=== PATIENT | male | born 1940 | race Caucasian/White ===

== ENCOUNTER 2021-12-29 10:50 | Day surgery (SDC) | payer MEDICARE ==
[~2021-12-29] VITALS: Ht 177.8 cm; Wt 88.2 kg
[2021-12-29] VITALS (11 sets, daily range): BP systolic 121–166; BP diastolic 56–85; PULSE 58–81; TEMP 97.1–98.8
[2021-12-29] MEDS ORDERED: REQUIP0.25 MG PO (12:11)
[2021-12-29] MEDS ORDERED: FLOMAX 0.40.4 MG/CAP PO (12:12)
[2021-12-29] MEDS ORDERED: DITROPAN XL15 MG PO (12:12)
[2021-12-29] MEDS ORDERED: PROSCAR 5MG5 MG PO (12:13)
[2021-12-29] MEDS ORDERED: SINEMET 25/101 UDTAB PO ×2 (12:15→12:16)
[2021-12-29] MEDS ORDERED: PYRIDIUM 100MG100 MG PO (13:36)
--- NOTE | 2021-12-29 15:45 | NUR ---
PT'S FLOMAX HAD ENTERED INTO MED REC BEING TAKEN TID @ HOME. PT STATES THAT HE ONLY TAKES IT ONCE A DAY.
--- NOTE | 2021-12-29 17:44 | NUR ---
PT ARRIVED TO ROOM @ 1505 FROM PACU. PT HAS SLEPT SINCE ARRIVAL BUT IS EASILY AROUSABLE. PT'S SON WAS HERE BUT HAS SINCE LEFT. PT PERSONAL BELONGINGS ET WALKER ARE IN ROOM. PT HAS PARKINSON'S WITH OCCASIONAL TREMORS. TREMORS HAVE BEEN SEEN FREQUENTLY. PT IS ORIENTED TO PLACE, DATE ET SITUATION. SCDS ARE BILATERAL LEGS. CBI RUNNING @ A MODERATE RATE, DRAINAGE IN GONSALEZ BAG IS PINK ET CLEAR. POST OP IVF INFUSING INTO PT'S LEFT HAND. PT IS OFFERED FLUIDS FREQUENTLY BUT STATES THAT HE WOULD NOT LIKE TO HAVE ANY @ THE MOMENT, CONTINUES TO BE DROWSY. RESPIRATIONS UNLABORED. CALL LIGHT WITHIN REACH. BED ALARM IS ON.
--- NOTE | 2021-12-29 18:15 | NUR ---
PT IS MORE AWAKE @ THIS TIME. OPENS EYES BUT DOES NOT TALK MUCH. PT IS ENCOURAGED TO DRINK ET TAKES A SIP OF WATER. PT DENIES NEEDS WHEN ASKED. CBI RUNNING @ A MODERATE RATE, DRAINAGE IS LIGHT PINK ET CLEAR. IVF INFUSING. CALL LIGHT WITHIN REACH.
--- NOTE | 2021-12-29 20:55 | NUR ---
Patient assessed around 1954. Alert and oriented. Denies pain and discomfort. Peripheral IV to left hand. Has IV fluids running at this time, as he did not eat and drink much for supper. Denies SOB and dyspnea. LS CTA in upper lobes, diminished in lower. HRR. BSAx4. Abdomen soft and non-tender. No edema. Patient has CBI running at this time. Moderate rate, with pink, clear urine. Voices no questions, needs, or concerns at this time. In bed with call light within reach. Bed alarm on.
[2021-12-30 04:20] VITALS: BP 140/85; PULSE 74; TEMP 98.2
--- NOTE | 2021-12-30 05:32 | NUR ---
CBI continues to run. Output pink/clear. Had 3 small clots during the night, no irrigation needed. Patient had received B&O suppository once during the night, which he reports helped some. Voices no questions, needs, or concerns at this time. In bed with call light within reach.
[2021-12-30 06:40] VITALS: BP 153/70; PULSE 74; TEMP 98.3
--- NOTE | 2021-12-30 06:50 | NUR ---
Shift assessment completed. IV intact in left hand with no signs of redness. Running 1/2 NS at 75 mL/hr. Indwelling cardoza catheter intact with CBI running at a slow rate. Light pink urine noted. SCD's intact. Call light in reach.
--- NOTE | 2021-12-30 08:21 | NUR ---
MAIL RIDER BROOKLIN REPORTS THAT PT HAD BEEN SETTING OFF HIS BED ALARM ET LEAVING BED BY SELF, WAS CONFUSED ET ATTEMPTED TO PULL ON CATHETER, WAS ABLE TO RE-ORIENT ET SETTLED BACK INTO BED. WHEN THIS NURSE ENTERS ROOM, PT IS IN BED LYING STILL WITH EYES OPEN. PT IS A&O X3, CAN RECALL WHAT DR. YU TOLD HIM THIS MORNING. PT IS SLOW TO SPEAK ET RESPOND @ BASELINE. PT DENIES PAIN OR NEEDS. PT ATE 100% OF HIS BREAKFAST ET IS TAKING FLUIDS WELL. IVF DCED PER ORDERS. CBI RUNNING SLOW, DRAINAGE IS PINK ET CLEAR, 1 SMALL RED CLOT SEEN IN TUBING. STUDENT BERNADETTE IS ASSISTING IN CARE. CALL LIGHT WITHIN REACH. BED ALARM ON.
--- NOTE | 2021-12-30 09:05 | NUR ---
PHONE ORDER RECEIVED FROM DR. YU TO PRIME & PULL GONSALEZ CATHETER.
--- NOTE | 2021-12-30 09:26 | NUR ---
Social Work student met with patient to discuss discharge planning. Patient states he lives in [place] at home. Patient sees Dr. Ghassan Johnson for primay care, and he utilizes the [facility] in [place] to receive his medications. The patient states he has no problems affording the medications. Patient states he uses a walker, does not have any oxygen needs, and is independent with his ADL's. Patient states that he has a copy of his DPOA-HC at home, but the hospital does not currently have a copy. Patient states that he is comfortable with going home when he is ready to discharge after his surgery. Discharge plan: Home
--- NOTE | 2021-12-30 09:35 | NUR ---
Prime and pull performed. Approx 300 mL NS infused into bladder. 30 mL sterile water removed from balloon. 22FR cardoza catheter removed with tip intact. Pt tolerated well. Six bottle routine initiated and pt was educated on the process. Pt voiced understanding. 0950 First void collected was 120 mL of munoz red colored urine. Pt complained of 5/10 burning pain during urination.
[2021-12-30 10:50] VITALS: BP 144/64; PULSE 78; TEMP 98.2
--- NOTE | 2021-12-30 15:00 | NUR ---
DR. YU CALLED ET UPDATED ON PT STATUS. PT'S URINE CONTINUES TO BE BRIGHT RED ET HAZY BUT NO CLOTS ARE SEEN. PT DOES REPORT SOME BURNING WITH URINATION. NO NEW ORDERS @ THIS TIME BUT TO CONTINUE TO MONITOR URINE OUTPUT FOR NOW, TO ENCOURAGE FLUIDS, ET TO UPDATE THE ON-CALL DOCTOR BEFORE DISCHARGING PT. PT'S DAUGHTER IN LAW IS HERE ET WILL BE PT'S RIDE HOME. PT IS ORIENTED BUT BECOMES FORGETFUL ET WILL BEGIN TO STAND ON OWN. PT HAS CHRONIC ET GAIT IS NOT ALWAYS STEADY. BED ALARM USED FOR SAFETY.
[2021-12-30 16:00] VITALS: BP 172/74; PULSE 78; TEMP 98
--- NOTE | 2021-12-30 17:30 | NUR ---
PT HAS BEEN URINATING FREQUENTLY BUT AVERAGING 150 ML/VOID. PT BLADDER SCANNED BY PCT CHECO. GREATEST AMOUNT SCANNED WAS [address] GUTIERREZ CALLED ET UPDATED ON PT STATUS. NEW ORDER RECEIVED FOR SL LEVSIN. PT'S URINE HAS BECOME CLEAR ET IS A PINK/PEACH COLOR. NO CLOTS HAVE BEEN SEEN. LEVSIN SL ADMINISTERED TO PT. DAUGHTER IN LAW IS @ BEDSIDE. CALL LIGHT WITHIN REACH. BED ALARM IS ON.
--- NOTE | 2021-12-30 19:15 | NUR ---
PO SINEMET ADMINISTERED TO PT EARLY R/T PT ET FAMILY REQUEST. PT NORMALLY TAKES MEDICATION @ 0800, 1300, ET 1700. PT HAS TREMORS R/T PARKINSON'S DISEASE.
--- NOTE | 2021-12-30 19:42 | NUR ---
Went over discharge paperwork with patient at 1920. Patient voiced understanding, no questions, needs, or concerns at this time. Patient left facility at this time, had ride home.
== END 2021-12-30 19:44 | disposition home or self-care (01) ==
LOC: SDCO 10:50 → SURG 15:05 → SDCO 12-30 19:44
DX: N40.1 Benign prostatic hyperplasia with lower urinary tract symptoms (principal); R39.12 Poor urinary stream; R35.1 Nocturia; R39.15 Urgency of urination; R35.0 Frequency of micturition; R61 Generalized hyperhidrosis
CPT/HCPCS: OP; J0690; J2405; J2704; J3480; J7120